=== PATIENT | female | born 1995 | race Caucasian/White ===

== ENCOUNTER 2022-08-04 07:38 | Emergency (ER) | payer SELFPAY ==
[2022-08-04 08:03] VITALS: BP 113/76; PULSE 93; RESP 18; TEMP 99.2
[2022-08-04] MEDS ORDERED: ACETAMINOPHEN 500 MG TABLET (FP) PO ONE (08:48)
== END 2022-08-04 09:35 | disposition home or self-care (01) ==
LOC: JER 07:38
DX: U07.1 COVID-19 (principal); J02.9 Acute pharyngitis, unspecified
CPT/HCPCS: 0241U-QW; 99283-25